=== PATIENT | female | born 1970 | race Caucasian/White ===

== ENCOUNTER 2025-04-12 10:51 | Emergency (ER) | payer BC, SELFPAY ==
[2025-04-12 10:57] VITALS: BP 149/95; PULSE 95; RESP 19; TEMP 36.8; O2SAT 95; BMI 26.6
--- NOTE | 2025-04-12 11:07 | XR_ITS ---
Examination: CT cervical spine without contrast 2-D sagittal reconstructions 2-D coronal reconstructions 3-D reconstructions. Exam date and time: April 12, 2025, 11:51 a.m. INDICATIONS: CTDI:vol (mGy) 15.3 DLP: (mGycm) 287 Technique: Multiple 2 mm axial sections of the cervical spine have been obtained. The coronal and sagittal reconstructions have been obtained. 3-D reconstructions have been obtained. Low dose protocols were performed. One or more of the following dose reduction techniques were used; automated exposure control, adjustment of the mA and/or KV according to patient size, use of iterative reconstruction technique. Findings: Axial sections demonstrate intact base of the skull. C1 exhibit satisfactory relationship to the odontoid. No acute cervical vertebral body fracture seen. Alignment posterior spinous processes satisfactory. Impression: No acute cervical fracture.
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
--- NOTE | 2025-04-12 11:25 | EDNOTE_ITS ---
ED Wound/Laceration-RME/HPI General Chief Complaint: Wound/Laceration Stated Complaint: Left side head laceration from metal Time Seen by Provider: 04/12/25 11:18 Arrival date/time: 04/12/25 10:51 54-year-old female patient came in for evaluation regarding head injury. Patient was fixing a water tank, a metal hose hit her head, resulting into contusion and abrasion to the scalp left temporal area. Incident happened about 1 hour prior to ER visit. Patient denies any LOC. Denies any nausea or vomiting denies any other injury except for mild neck tenderness. Patient is ambulatory. Tetanus vaccination is up-to-date. Related Data Allergies Allergy/AdvReac Type Severity Reaction Status Date / Time NKA* Allergy Uncoded 04/12/25 10:54 Review of Systems Review of Systems Narrative Review of Systems: Review of system reviewed and within normal limits except mentioned in HPI ED Exam Narrative Physical exam: VITAL SIGNS: Reviewed. GENERAL APPEARANCE: Alert and interactive, follows commands, no acute distress, HEAD AND FACE: Scalp laceration, left temporal area ENT: PERRL, pink conjunctivitis, eyelid no trauma, Mucous membrane moist. NECK: Supple, nontender, no nuchal rigidity. CHEST: No tenderness, no crepitus, no paradoxical movement, no retractions. LUNGS: Clear, well ventilated, symmetric, no rales, no wheezing, no ronchi, no stridor, good breath sounds bilaterally. HEART: Regular rate, regular rhythm, no murmur, no gallops. ABDOMEN: Soft, positive bowel sounds, nondistended, no guarding, nontender, no rebound, no masses, RECTAL: Deferred. GENITAL: Deferred. NEUROLOGICAL: Gross motor function intact sensory function intact, Appropriate for age. MUSCULOSKELETAL: low back nontender, full range of motion. EXTREMITIES: Nontender, full range of motion. SKIN: Color pink, dry, no rash, no lacerations, no abrasions, no contusions. LYMPHATICS: Deferred. Course Quality Measures none Orders Category Date Time Status CT cervical spine wo con Stat Exams 04/12/25 11:[address] head/brain wo con Stat Exams 04/12/25 11:07 Completed Vital Signs Vital signs: Vital Signs Temperature 98.2 F 04/12/25 10:57 Pulse Rate 95 04/12/25 10:57 Respiratory Rate 19 04/12/25 10:57 Blood Pressure 149/95 H 04/12/25 10:57 Pulse Oximetry (%) 95 04/12/25 10:57 Oxygen Delivery Method Room Air 04/12/25 10:57 Wound / Laceration MDM Narrative MDM Narrative:: 04/12/25 10:51 54-year-old female patient came in for evaluation regarding head injury. Patient was fixing a water tank, a metal hose hit her head, resulting into contusion and abrasion to the scalp left temporal area. Incident happened about 1 hour prior to ER visit. Patient denies any LOC. Denies any nausea or vomiting denies any other injury except for mild neck tenderness. Patient is ambulatory. Tetanus vaccination is up-to-date. Wound cleansed with skin cleanser and NS, with patient's consent, I was able to close the scalp laceration with sobia x 2 without any anesthesia. Patient is tolerating the procedure well. Patient. applied with Neosporin. CT scan of the head came back unremarkable. CT scan of the neck came back unremarkable. Results discussed with the patient and family. Stable for discharge home Patient data External records reviewed:: None Clinical information provided by:: patient and family Social determinants that could affect healthcare access:: none Patient has the following chronic illnesses:: None How is presenting disease/condition affected by chronic disease/condition?: no chronic disease Evaluation data The following diagnostics were reviewed and interpreted by me:: radiology exam(s) Lab and/or radiology exams considered but not ordered:: None Interpretation Summary: None Medications / Prescriptions Medications or Prescriptions considered but not ordered:: None Medication administrations:: None Consultations Consultation(s) initiated? (list below): No Diagnosis Wound Differential Diagnosis: laceration, abrasion and avulsion of skin Most likely diagnosis given after review of the tests above:: Scalp laceration, closed head injury Admission Indicated Admission indicated?: not indicated Admission Request Was there a request for admission?: No Disposition Plan Disposition Plan: Discharge Discharge Attestation Discharge Attestation: The patient and all family members were given an opportunity to ask questions and understood the discharge instructions. Discharge instructions specifically effects, indications for sooner follow up or return to the emergency department, and the expected course of current diagnosis. Patient condition: Stable Discharge Plan Plan Patient Disposition: HOME (Self Care) Discharge Disposition comment: stable Prescriptions/Referrals Referrals: Angela Blackwood NP [Primary Care Provider] - In 1 week Problem List Clinical Impression: Laceration of scalp Patient/Caregiver Discharge Instructions Discharge Activity: activity as tolerated Education Materials: ED Head Injury (Adult) Additional Instructions: Thank you for the opportunity for serving you today. You are stable for discharged . You are advised to: Follow-up with your PCP in 1 to 2 days Return to ED for worsening of symptoms Increase oral fluids Daily dressing with triple antibiotic as needed For removal of sobia in 7 days Print Language: Turkmen Stand Alone Forms: [employer] Award Info., Patient Portal Info Letter PA/CORE COMPOSER FEEDER Supervising Physician PA/CORE COMPOSER FEEDER Supervising Physician: MD Brooklynn
[2025-04-12 13:54] VITALS: BP 126/75; PULSE 76; RESP 16; TEMP 36.9; O2SAT 100
== END 2025-04-12 14:23 | disposition home or self-care (01) ==
PROVIDERS: Emergency Provider Emergency Medicine; PCP Nurse Practitioner Family
DX: S01.01XA Laceration without foreign body of scalp, initial encounter (principal); W45.8XXA Other foreign body or object entering through skin, initial encounter
CPT/HCPCS: 12001; 70450; 72125; 99282